=== PATIENT | female | born 1995 | race Caucasian/White ===

== ENCOUNTER 2019-10-24 20:52 | Emergency (ER) | payer OTHER ==
[2019-10-24] MEDS ORDERED: Diazepam TAB(*) 5 MG PO ONE (21:41)
[2019-10-24] MEDS ORDERED: NS 0.9% 1000 ML** 1,000 ML IV ONE (21:41)
--- NOTE | 2019-10-24 21:41 | ED ---
Back Pain - HPI Summary HPI Summary: Patient complains of persistent severe left lower back pain, severe left lower quadrant pain, foul smelling urine 2 weeks, right nipple bleeding starting today. Denies trauma. History of chronic left lower back pain, but states pain has never been this bad before. Patient's abdominal history of present illness isn't consistent, states left lower quadrant pain is new onset, then states it she has had it before. Pain described as constant. Denies fever, cough, sore throat, CP, SOB, N/V/D, burning with urination, change in BM, vaginal symptoms. Medical history is chronic back pain, IBS, "kidneys". Patient unable to define "kidneys". - History of Current Complaint Chief Complaint: EDBackInjuryPain Stated Complaint: BACK PAIN/SIDE PAIN PER PT Time Seen by Provider: 10/24/19 21:11 Hx Obtained From: Patient Hx Last Menstrual Period: depo 2 mos ago Onset/Duration: Gradual Onset, Lasting Days Onset/Duration: Started Days Ago Timing: Constant Severity Initially: Moderate Severity Currently: Severe Pain Intensity: 10 Pain Scale Used: 0-10 Numeric Character: Sharp Aggravating Symptom(s): Movement Alleviating Symptom(s): Rest, Position Associated Signs And Symptoms: Positive: Abdominal Pain - Allergies/Home Medications Allergies/Adverse Reactions: Allergies Allergy/AdvReac Type Severity Reaction Status Date / Time cephalexin [From Keflex] Allergy Unknown Verified 10/24/19 21:18 Reaction Details codeine Allergy Unknown Verified 10/24/19 21:18 Reaction Details PMH/Surg Hx/FS Hx/Imm Hx Endocrine/Hematology History: Denies: Hx Diabetes Cardiovascular History: Denies: Hx Congestive Heart Failure, Hx Hypertension Respiratory History: Reports: Hx Asthma - CHILD History: Denies: Hx Renal Disease Sensory History: Denies: Hx Eye Prosthesis Opthamlomology History: Denies: Hx Legally Blind EENT History: Denies: Hx Deafness Neurological History: Denies: Hx Dementia Infectious Disease History: No Infectious Disease History: Reports: Hx Shingles - 4-5 yrs ago Denies: Hx Clostridium Difficile, Hx Hepatitis, Hx Human Immunodeficiency Virus (HIV), Hx of Known/Suspected MRSA, Hx Tuberculosis, Hx Known/Suspected VRE , Hx Known/Suspected VRSA, History Other Infectious Disease, Traveled Outside the [place] in Last 30 Days - Family History Known Family History: Positive: Non-Contributory - Social History Alcohol Use: None Substance Use Type: Reports: Marijuana Smoking Status (MU): Never Smoked Tobacco Review of Systems Constitutional: Negative Eyes: Negative ENT: Negative Cardiovascular: Negative Respiratory: Negative Positive: Abdominal Pain Genitourinary: Other Musculoskeletal: Other Skin: Negative Neurological: Negative Psychological: Normal All Other Systems Reviewed And Are Negative: Yes Physical Exam - Summary Physical Exam Summary: Tenderness in left lower quadrant, suprapubically. Abdominal exam otherwise unremarkable. Pain of left flank. Positive CVA tenderness left side. Right side exam normal. Triage Information Reviewed: Yes Vital Signs On Initial Exam: Initial Vitals Temp Pulse Resp BP Pulse Ox 98.8 F 135 19 144/100 98 10/24/19 20:54 10/24/19 20:54 10/24/19 20:54 10/24/19 20:54 10/24/19 20:54 Vital Signs Reviewed: Yes Appearance: Positive: Well-Appearing Skin: Positive: Warm Head/Face: Positive: Normal Head/Face Inspection Eyes: Positive: Normal Neck: Positive: Supple Respiratory/Lung Sounds: Positive: Clear to Auscultation Cardiovascular: Positive: Normal Abdomen Description: Positive: Other: Musculoskeletal: Positive: Normal Neurological: Positive: Normal Psychiatric: Positive: Normal AVPU Assessment: Alert - Jw Coma Scale Best Eye Response: 4 - Spontaneous Best Motor Response: 6 - Obeys Commands Best Verbal Response: 5 - Oriented Coma Scale Total: 15 Procedures - Sedation Patient Received Moderate/Deep Sedation with Procedure: No Diagnostics - Vital Signs Vital Signs Temp Pulse Resp BP Pulse Ox 10/24/19 20:54 98.8 F 135 19 144/100 98 - Laboratory Result Diagrams: 10/24/19 21:48 10/24/19 21:48 Lab Statement: Any lab studies that have been ordered have been reviewed, and results considered in the medical decision making process. Back Pain Course/Dx - Course Course Of Treatment: Patient complains of persistent severe left lower back pain , severe left lower quadrant pain, foul smelling urine 2 weeks, right nipple bleeding starting today. Denies trauma. History of chronic left lower back pain, but states pain has never been this bad before. Patient's abdominal history of present illness isn't consistent, states left lower quadrant pain is new onset, then states it she has had it before. Pain described as constant. Denies fever, cough, sore throat, CP, SOB, N/V/D, burning with urination, change in BM, vaginal symptoms. Medical history is chronic back pain, IBS, "kidneys". Patient unable to define "kidneys". Vital signs within normal limits. WBC 14. Labs otherwise unremarkable. Urine negative. Transvaginal ultrasound negative. CAT scan of abdomen and pelvis negative. Patient's symptoms improved with 1 mg Ativan IV. - Diagnoses Provider Diagnoses: Muscle spasm Discharge ED - Sign-Out/Discharge Documenting (check all that apply): Patient Departure - Discharge Plan Condition: Stable Disposition: HOME Prescriptions: Cyclobenzaprine TAB* [Flexeril 10 MG TAB*] 10 mg PO TID PRN 4 Days #12 tab PRN Reason: Spasms Diazepam TAB(*) [Valium TAB(*)] 5 mg PO TID PRN 1 Days #4 tab MDD 3 tabs PRN Reason: Spasms Patient Education Materials: Muscle Spasm (ED) Referrals: No Primary Care Phys,NOPCP [Primary Care Provider] - Additional Instructions: Take Valium at night as directed if needed needed for muscle relaxer. Take Flexeril as directed during the day if needed for muscle relaxer. Return to the ED for any new or worsening symptoms. - Billing Disposition and Condition Condition: STABLE Disposition: Home
[2019-10-24] MEDS ORDERED: Ondansetron INJ* 2 MG/ML VIAL IV ONE (21:45)
[2019-10-24] MEDS ORDERED: Morphine 4 MG/ML VIAL (1 ml) 4 MG/ML VIAL IV ONE ×2 (21:45→23:37)
[2019-10-24 21:54] LABS: ABS Basophils 0.1 10^3/ul (0-0.2); ABS Eosinophils 0.2 10^3/ul (0-0.6); ABS Lymphocytes 3.6 10^3/ul (1.0-4.8); ABS Monocytes 1.3 10^3/ul (0-0.8); ABS Neutrophils 9.4 10^3/ul (1.5-7.7); Eosinophil % 1.3 %; Hematocrit 41 % (35-47); Hemoglobin 14.6 g/dL (12.0-16.0); Lymphocyte % 24.6 %; Mean Corpuscular HGB Conc 36 g/dL (31-36); Mean Corpuscular Hemoglobin 32 pg (27-31); Mean Corpuscular Volume 89 fL (80-97); Mean Platelet Volume 8.7 fL (7.4-10.4); Platelet Count 289 10^3/uL (150-450); Red Blood Count 4.59 10^6 /uL (3.70-4.87); Red Cell Distribution Width 13 % (10-15); White Blood Count 14.5 10^3/uL (3.5-10.8)
[2019-10-24 22:11] LABS: Albumin 4.1 g/dL (3.2-5.2); Albumin/Globulin Ratio 1.5 (1-3); BUN/Creatinine Ratio 15.9 (8-20); C Reactive Protein 1.69 mg/L (<8.01); Calcium 9.4 mg/dL (8.6-10.3); EGFR African American 124.4 (>60); EGFR Non-African American 102.8 (>60); Globulin 2.7 g/dL (2-4); Potassium 3.4 mmol/L (3.5-5.0); Total Bilirubin 0.3 mg/dL (0.2-1.0); Total Protein 6.8 g/dL (6.4-8.9)
[2019-10-24 22:17] LABS: HCG Pregnancy 2.43 mIU/mL
[2019-10-24 22:32] LABS: Urine Appearance Cloudy; Urine Bilirubin Negative (Negative); Urine Blood 1+ (Negative); Urine Color Yellow; Urine Glucose Negative (Negative); Urine Ketones Negative (Negative); Urine Nitrite Negative (Negative); Urine Protein Negative (Negative); Urine Specific Gravity 1.006 (1.010-1.030); Urine Urobilinogen Negative (Negative)
[2019-10-24 22:36] LABS: Urine Bacteria Absent (Absent); Urine Red Blood Cell Trace(0-2/hpf) (Absent); Urine Squamous Epithelial Cell Present (Absent); Urine White Blood Cell Trace(0-5/hpf) (Absent)
[2019-10-24 22:45] LABS: HIV 4th Generation Nonreactive (Nonreactive)
[2019-10-24] MEDS ORDERED: Iohexol 300* (CONTRAST) 10 ML SDV IV ONE (23:11)
[2019-10-24] MEDS ORDERED: Lorazepam PYXIS KEY PRN (23:38)
[2019-10-24] MEDS ORDERED: LORazepam INJ* 2 MG/ML 1 ML VIAL IV ONE (23:38)
[2019-10-24] MEDS ORDERED: Lorazepam PYXIS KEY ONE (23:40)
[2019-10-25 00:39] VITALS: BP 93/49
== END 2019-10-25 00:38 | disposition home or self-care (01) ==
LOC: ED 20:52
DX: M62.838 Other muscle spasm (principal); M54.5 Low back pain; R10.9 Unspecified abdominal pain
CPT/HCPCS: 36415; 74177; 76830; 80053; 81003; 81015; 83690; 84702; 85025; 86140; 87086; 87389; 96361; 96374; 96375; 99283; J2060; J2270; J2405; Q9967

== ENCOUNTER 2019-12-15 20:10 | Emergency (ER) | payer OTHER ==
--- NOTE | 2019-12-15 23:40 | ED ---
Influenza-Like Illness - HPI Summary HPI Summary: 24 year old F arriving via private car to [facility] complains of worsening congestion, sore throat, cough, weakness, chills, dyspnea x2 days. No fever. Recently dx URI with nasal congestion, scratchy throat, minimal cough for which she was self-treating. No SOB or fever at that time. She seemed to be improving until 2 days ago when she abruptly became more sick. She developed weakness, chills, no definite fever, more dry cough, mild dyspnea. The patient rates the pain 8/10 in severity. Symptoms aggravated by nothing. Symptoms alleviated by nothing. Medications reviewed. Allergies noted. - History of Current Complaint Chief Complaint: EDFluSymptoms Time Seen by Provider: 12/15/19 23:31 Hx Obtained From: Patient Onset/Duration: Lasting Days - 4, Still Present Severity: Severe - Allergy/Home Medications Allergies/Adverse Reactions: Allergies Allergy/AdvReac Type Severity Reaction Status Date / Time cephalexin [From Keflex] Allergy Unknown Verified 10/24/19 21:18 Reaction Details codeine Allergy Unknown Verified 10/24/19 21:18 Reaction Details Home Medications: Home Medications Ibuprofen TAB* [Motrin TAB*] 800 mg PO ONCE 12/19/14 [History Confirmed 12/19/14 ] Cyclobenzaprine TAB* [Flexeril 10 MG TAB*] 10 mg PO TID PRN 4 Days #12 tab 10/25 [Rx] Diazepam TAB(*) [Valium TAB(*)] 5 mg PO TID PRN 1 Days #4 tab MDD 3 tabs [Rx] Azithromycin TAB* [Zithromax TAB (Z-MIKIE) 250 mg #6 tabs] 2 tab PO .TODAY, THEN 1 DAILY #1 mikie 12/16/19 [Rx] PMH/Surg Hx/FS Hx/Imm Hx Endocrine/Hematology History: Denies: Hx Diabetes Cardiovascular History: Denies: Hx Congestive Heart Failure, Hx Hypertension Respiratory History: Reports: Hx Asthma - CHILD History: Denies: Hx Renal Disease Sensory History: Denies: Hx Eye Prosthesis, Hx Legally Blind, Hx Deafness Opthamlomology History: Denies: Hx Eye Prosthesis, Hx Legally Blind Neurological History: Denies: Hx Dementia - Surgical History Surgical History: None Infectious Disease History: No Infectious Disease History: Reports: Hx Shingles - 4-5 yrs ago Denies: Hx Clostridium Difficile, Hx Hepatitis, Hx Human Immunodeficiency Virus (HIV), Hx of Known/Suspected MRSA, Hx Tuberculosis, Hx Known/Suspected VRE , Hx Known/Suspected VRSA, History Other Infectious Disease, Traveled Outside the [place] in Last 30 Days - Family History Known Family History: Negative: Cardiac Disease, Hypertension, Diabetes - Social History Alcohol Use: None Hx Substance Use: Yes Substance Use Type: Reports: Marijuana Hx Tobacco Use: No Smoking Status (MU): Never Smoked Tobacco Review of Systems Positive: Chills. Negative: Fever Positive: Sore Throat, Other - congestion Positive: Cough, Other - dyspnea Positive: Weakness All Other Systems Reviewed And Are Negative: Yes Physical Exam - Summary Physical Exam Summary: Appearance: Well-appearing, Well-nourished, lying in bed comfortably Skin: Warm, dry, no obvious rash Eyes: sclera anicteric, no conjunctival pallor HENT: mucous membranes moist, pharynx appears normal Neck: Supple, nontender Respiratory: Clear to auscultation, no signs of respiratory distress Cardiovascular: Normal S1, S2. No murmurs. Normal distal pulses in tibial and radial bilaterally. Abdomen: Soft, nontender, normal active bowel sounds present Musculoskeletal: Normal, Strength/ROM Intact Neurological: A&Ox3, awake and alert, mentation is normal, speech is fluent and appropriate Psychiatric: affect is normal, does not appear anxious or depressed Triage Information Reviewed: Yes Vital Signs On Initial Exam: Initial Vitals Temp Pulse Resp BP Pulse Ox 98.5 F 111 20 134/97 98 12/15/19 20:17 12/15/19 20:17 12/15/19 20:17 12/15/19 20:17 12/15/19 20:17 Vital Signs Reviewed: Yes Procedures - Sedation Patient Received Moderate/Deep Sedation with Procedure: No Diagnostics - Vital Signs Vital Signs Temp Pulse Resp BP Pulse Ox 12/15/19 22:16 97.8 F 103 14 131/87 100 12/15/19 20:17 98.5 F 111 20 134/97 98 - Laboratory Result Diagrams: 12/16/19 00:20 12/16/19 00:20 Lab Statement: Any lab studies that have been ordered have been reviewed, and results considered in the medical decision making process. - Radiology CXR Radiology Interpretation Completed By: ED Physician - NO ACUTE PROCESS. Pending official report. Flu Symptom Course/Dx - Course Course Of Treatment: 24 y/o F c/o worsening congestion, sore throat, cough, weakness, chills, dyspnea x2 days. Recent dx URI with nasal congestion, scratchy throat, minimal cough for which she self-treated. She seemed to be improving until 2 days ago when she abruptly developed weakness, chills, no definite fever, more dry cough, mild dyspnea. Physical exam unremarkable. Bloodwork results with no significant abnormalities. Influenza tests negative. CXR shows no acute proceess. She has an upper respiratory infection. She will be discharged home with rx for azithromycin and follow up from her primary care provider. Patient was instructed to return to Emergency Department for new or worsening symptoms. Patient understands and is agreeable to this plan. - Diagnoses Provider Diagnoses: URI (upper respiratory infection) Discharge ED - Sign-Out/Discharge Documenting (check all that apply): Patient Departure - Discharge Plan Condition: Good Disposition: HOME Prescriptions: Azithromycin TAB* [Zithromax TAB (Z-MIKIE) 250 mg #6 tabs] 2 tab PO .TODAY, THEN 1 DAILY #1 mikie Patient Education Materials: Upper Respiratory Infection (ED) Referrals: Jenny Cooper MD [Primary Care Provider] - - Billing Disposition and Condition Condition: GOOD Disposition: Home - Attestation Statements Document Initiated by Paul: Yes Documenting Scribe: Heike Nair Provider For Whom Paul is Documenting (Include Credential): Srinivas Finch MD Scribnoelle Attestation: Heike Reyes, scribed for Srinivas Finch MD on 12/20/19 at 0609. Scribe Documentation Reviewed: Yes Provider Attestation: The documentation as recorded by the Heike coppola accurately reflects the service I personally performed and the decisions made by me, Srinivas Finch MD Status of Paul Document: Viewed
[2019-12-16 00:14] LABS: Influenza A Molecular Negative (Negative); Influenza B Molecular Negative (Negative)
[2019-12-16 00:41] LABS: ABS Basophils 0.1 10^3/ul (0-0.2); ABS Eosinophils 0.1 10^3/ul (0-0.6); ABS Lymphocytes 1.4 10^3/ul (1.0-4.8); ABS Monocytes 1.1 10^3/ul (0-0.8); ABS Neutrophils 5.8 10^3/ul (1.5-7.7); Eosinophil % 0.9 %; Hematocrit 41 % (35-47); Hemoglobin 14.4 g/dL (12.0-16.0); Lymphocyte % 16.4 %; Mean Corpuscular HGB Conc 35 g/dL (31-36); Mean Corpuscular Hemoglobin 32 pg (27-31); Mean Corpuscular Volume 90 fL (80-97); Platelet Count 256 10^3/uL (150-450); Red Blood Count 4.59 10^6 /uL (3.70-4.87); Red Cell Distribution Width 13 % (10-15); White Blood Count 8.4 10^3/uL (3.5-10.8)
[2019-12-16 00:57] LABS: Albumin 4.4 g/dL (3.2-5.2); Albumin/Globulin Ratio 1.5 (1-3); BUN/Creatinine Ratio 11.9 (8-20); Calcium 9.7 mg/dL (8.6-10.3); EGFR African American 128.7 (>60); EGFR Non-African American 106.4 (>60); Potassium 3.8 mmol/L (3.5-5.0); Total Bilirubin 0.4 mg/dL (0.2-1.0); Total Protein 7.4 g/dL (6.4-8.9)
[2019-12-16 01:21] VITALS: BP 120/82
== END 2019-12-16 01:20 | disposition home or self-care (01) ==
LOC: ED 20:10
DX: J06.9 Acute upper respiratory infection, unspecified (principal); Z88.1 Allergy status to other antibiotic agents; Z88.5 Allergy status to narcotic agent
CPT/HCPCS: 36415; 71046; 80053; 85025; 99282